=== PATIENT | male | born 1945 | race Caucasian/White ===

== ENCOUNTER 2024-01-22 13:40 | Outpatient (CLI) | payer OTHER ==
[2024-01-22 16:26] LABS: Hemoglobin 14.1 g/dL (13.5-17.5); Mean Corpuscular HGB CONC 33.6 g/dL (32.0-36.0); Mean Corpuscular Hemoglobin 31.8 pg (27.0-33.0); Mean Corpuscular Volume 94.8 fl (81.2-95.1); Mean Platelet Volume 9.9 fl (7.4-10.4); Platelet Count 170 10x3/uL (150-450); RBC Distribution Width 13.5 % (11.5-14.5); Red Blood Cell (RBC) Count 4.43 10x6/uL (4.32-5.72); White Blood Cell (WBC) Count 6.8 10x3/uL (3.5-10.5)
[2024-01-22 16:45] LABS: PTT 25.7 sec (22.0-33.0); Prothrombin Time 10.4 sec (9.5-12.1)
[2024-01-22 16:58] LABS: Anion Gap 12 mmol/L (10-20); BUN (Urea Nitrogen) 21 mg/dL (8.4-25.7); Calc. Creatinine Clearance 0 mL/min (70-130); Calcium 9.4 mg/dL (7.8-10.44); Carbon Dioxide 27 mmol/L (23-31); Chloride 104 mmol/L (98-107); Estimated GFR 88; Glucose 107 mg/dL (83-110); Potassium 4.3 mmol/L (3.5-5.1); Sodium 139 mmol/L (136-145)
== END 2024-01-22 13:41 | disposition home or self-care (01) ==
LOC: LABBT 13:40
PROVIDERS: ATTEND Surgery
DX: Z01.818 Encounter for other preprocedural examination (principal); M54.16 Radiculopathy, lumbar region; M48.062 Spinal stenosis, lumbar region with neurogenic claudication; M71.38 Other bursal cyst, other site
CPT/HCPCS: 80048; 85027; 85610; 85730; 93005; 93010

== ENCOUNTER 2024-01-27 09:56 | Inpatient (IN) | payer OTHER ==
[2024-01-27] MEDS ORDERED: fentaNYL PF 100 MCG/2 ML SYRINGE ONE ×2 (10:26→14:30)
[2024-01-27] MEDS ORDERED: Rocuronium Bromide 10 MG/ML (10ML VIAL) ONE (10:26)
[2024-01-27] MEDS ORDERED: PROPOFOL 20 ML ONE (10:26)
[2024-01-27] MEDS ORDERED: Lidocaine 1% PF 5 ML VIAL ONE (10:26)
[2024-01-27] MEDS ORDERED: Ondansetron PF 4 MG/2 ML Vial ONE ×2 (10:40→13:32)
[2024-01-27] MEDS ORDERED: Dexmedetomidine 200 MCG/2 ML VIAL ONE (10:49)
[2024-01-27] MEDS ORDERED: Thrombin 5000 UNITS/5 ML VIAL ONE (11:01)
[2024-01-27] MEDS ORDERED: Vancomycin 1 GM VIAL ONE (11:02)
[2024-01-27] MEDS ORDERED: Lidocaine 2% PF 5 ML VIAL ONE (11:07)
[2024-01-27] MEDS ORDERED: Glycopyrrolate 0.2 MG/ML 5 ML SYRINGE ONE (11:18)
[2024-01-27] MEDS ORDERED: NEOSTIGMINE 3 MG/3 ML SYR 3 MG/3 ML SYRINGE ONE (11:18)
[2024-01-27] MEDS ORDERED: CEFAZOLIN 2 GM VIAL ONE (12:03)
[2024-01-27] MEDS ORDERED: Sodium Chloride 0.9% 100 ML ONE (12:03)
[2024-01-27] MEDS ORDERED: Ketamine In 0.9 % NaCl 50 MG/5 ML SYRINGE ONE (12:20)
[2024-01-27] MEDS ORDERED: Dexamethasone 20 MG/5 ML VIAL ONE (13:32)
[2024-01-27] MEDS ORDERED: PHENYLEPHRINE-NS 100 MCG/ML 10 ML SYRINGE ONE (13:32)
[2024-01-27] MEDS ORDERED: SUGAMMADEX SODIUM 200 MG/2 ML VIAL ONE (14:40)
[2024-01-27] MEDS ORDERED: HYDROmorphone 2 MG/ML VIAL SLOW IVP PRN (15:11)
[2024-01-27] MEDS ORDERED: Ondansetron HCl/PF 4 MG/2 ML Vial IVP PRN (15:11)
[2024-01-27] MEDS ORDERED: Morphine Sulfate 2 MG/ML SYRINGE SLOW IVP PRN (15:11)
[2024-01-27] MEDS ORDERED: PACU-Morphine 4MG/ML VIAL SLOW IVP PRN (15:11)
[2024-01-27] MEDS ORDERED: Promethazine HCl 25 MG/ML VIAL IM PRN (15:11)
[2024-01-27] MEDS ORDERED: diphenhydrAMINE 25 MG CAP PO PRN (15:29)
[2024-01-27] MEDS ORDERED: Ondansetron PF 4 MG/2 ML Vial IVP PRN (15:29)
[2024-01-27] MEDS ORDERED: Milk Of Magnesia 30 ML UDCUP PO PRN (15:29)
[2024-01-27] MEDS ORDERED: fentaNYL 50 mcg/mL 1 mL Vial SLOW IVP PRN (15:29)
[2024-01-27] MEDS ORDERED: HYDROcodone/Acetaminophen 5/325 mg Tablet PO PRN (15:32)
[2024-01-27] MEDS ORDERED: Diazepam 5 MG TAB PO PRN (15:33)
[2024-01-27] MEDS ORDERED: hydrALAZINE 20 MG/ML VIAL SLOW IVP PRN (15:33)
[2024-01-27] MEDS ORDERED: fentaNYL 50 mcg/mL 1 mL Vial ONE (15:34)
[2024-01-27] MEDS: Sodium Chloride 0.9% 1,000 ML IV SCH (18:05)
[2024-01-27] MEDS ORDERED: Sterile Water 10 ML ONE (18:20)
[2024-01-27] MEDS: HYDROcodone/Acetaminophen 10/325 mg Tablet PO PRN (20:16)
[2024-01-27] MEDS: Rosuvastatin 20 MG TAB PO SCH (20:19)
[2024-01-27] MEDS: CEFAZOLIN 2 GM in Sodium Chloride 0.9% 100 ML IVPB SCH (20:20)
[2024-01-27] MEDS: tiZANidine HCl 4 MG TAB PO PRN (22:35)
[2024-01-27 22:49] VITALS: BMI 31.5
[2024-01-28 04:03] LABS: #Basophils Less than 0.03 10x3/uL (0.0-0.2); #Eosinphils Less than 0.03 10x3/uL (0.0-0.7); %Basophils 0.1 % (0.0-1.0); %Lymphocytes 6.5 % (21.0-51.0); %Monocytes 4.6 % (0.0-10.0); %Neutrophils 88.4 % (42.0-75.0); Hematocrit 37.3 % (42.0-52.0); Hemoglobin 12.4 g/dL (14.0-18.0); Mean Corpuscular HGB CONC 33.2 g/dL (32.0-36.0); Mean Corpuscular Hemoglobin 31.7 pg (27.0-31.0); Mean Corpuscular Volume 95.4 fL (78.0-98.0); Mean Platelet Volume 10.1 fL (7.4-10.4); Platelet Count 146 10x3/uL (130-400); RBC Distribution Width 13.4 % (11.5-14.5); Red Blood Cell (RBC) Count 3.91 mill/uL (4.70-6.10)
[2024-01-28 04:18] LABS: Anion Gap 13 mmol/L (10-20); BUN (Urea Nitrogen) 18 mg/dL (8.4-25.7); Calc. Creatinine Clearance 90 mL/min (70-130); Carbon Dioxide 25 mmol/L (23-31); Chloride 104 mmol/L (98-107); Estimated GFR 80; Glucose 222 mg/dL (83-110); Potassium 4.5 mmol/L (3.5-5.1); Sodium 137 mmol/L (136-145)
[2024-01-28] MEDS: Acetaminophen 325 MG TAB PO PRN (06:15)
[2024-01-28] MEDS: Ezetimibe 10 MG TAB PO SCH (08:50)
[2024-01-28] MEDS: Acetaminophen/Codeine 30-300mg Tablet PO PRN (08:51)
[2024-01-28] MEDS: Cholecalciferol 1,000 UNITS (25 MCG) TAB PO SCH (08:51)
[2024-01-28] MEDS: Pioglitazone HCl 15 MG TAB PO SCH (08:51)
[2024-01-29 11:52] VITALS: BP 113/67; TEMP 98.2
== END 2024-01-29 15:49 | disposition home or self-care (01) | DRG 517 ==
LOC: SDC 09:56 → SURG A 17:47 → OBSVTOIN 01-28 13:31
PROVIDERS: ADMIT Surgery; ATTEND Surgery
PROC: 01NB0ZZ Release Lumbar Nerve, Open Approach (ICD-10-PCS; principal; 2024-01-27)
PROC: 0QB00ZZ Excision of Lumbar Vertebra, Open Approach (ICD-10-PCS; 2024-01-27)
DX: M48.062 Spinal stenosis, lumbar region with neurogenic claudication (principal); M54.16 Radiculopathy, lumbar region; M71.30 Other bursal cyst, unspecified site; Z96.653 Presence of artificial knee joint, bilateral; E78.5 Hyperlipidemia, unspecified; I25.10 Atherosclerotic heart disease of native coronary artery without angina pectoris; M19.90 Unspecified osteoarthritis, unspecified site; M71.38 Other bursal cyst, other site; E66.9 Obesity, unspecified; Z85.46 Personal history of malignant neoplasm of prostate; Z68.31 Body mass index [BMI] 31.0-31.9, adult; R33.9 Retention of urine, unspecified
CPT/HCPCS: 36415; 80048; 85025; J1100; J2001; J2405; J2704; J3010; J3370; J3490; J7050